=== PATIENT | male | born 1960 | race Caucasian/White ===

== ENCOUNTER 2017-03-16 09:51 | Outpatient (CLI) | payer SELFPAY ==
[2017-03-16 10:16] LABS: INR-International Normal Ratio 2.3; Prothrombin Time 25.7 SEC (12.0-14.7)
== END 2017-03-16 09:52 | disposition home or self-care (01) ==
LOC: MADLABBHPM 09:51
PROVIDERS: ATTEND Family Medicine
DX: Z51.81 Encounter for therapeutic drug level monitoring (principal); Z79.01 Long term (current) use of anticoagulants
CPT/HCPCS: 36415; 85610

== ENCOUNTER 2017-04-06 07:18 | Outpatient (CLI) | payer SELFPAY ==
[2017-04-06 08:07] LABS: INR-International Normal Ratio 2.3; Prothrombin Time 26.1 SEC (12.0-14.7)
== END 2017-04-06 07:19 | disposition home or self-care (01) ==
LOC: MADLABBHPM 07:18
PROVIDERS: ATTEND Family Medicine
DX: Z51.81 Encounter for therapeutic drug level monitoring (principal); Z79.01 Long term (current) use of anticoagulants
CPT/HCPCS: 36415; 85610

== ENCOUNTER 2018-01-07 07:44 | Outpatient (CLI) | payer SELFPAY ==
[2018-01-07 08:28] LABS: Prothrombin Time 22.5 SEC (12.0-14.7)
== END 2018-01-07 07:45 | disposition home or self-care (01) ==
LOC: MADLAB 07:44
PROVIDERS: ATTEND Family Medicine
DX: Z51.81 Encounter for therapeutic drug level monitoring (principal); Z79.01 Long term (current) use of anticoagulants
CPT/HCPCS: 36415; 85610

== ENCOUNTER 2019-02-25 08:18 | Outpatient (CLI) | payer SELFPAY ==
[2019-02-25 08:39] LABS: INR-International Normal Ratio 1.8; Prothrombin Time 20.6 SEC (12.0-14.7)
== END 2019-02-25 08:19 | disposition home or self-care (01) ==
LOC: MADLAB 08:18
PROVIDERS: ATTEND Family Medicine
DX: Z51.81 Encounter for therapeutic drug level monitoring (principal); Z79.01 Long term (current) use of anticoagulants
CPT/HCPCS: 36415; 85610

== ENCOUNTER 2019-06-30 08:00 | Outpatient (CLI) | payer SELFPAY ==
[2019-06-30 08:53] LABS: INR-International Normal Ratio 2.8; Prothrombin Time 29.6 SEC (12.0-14.7)
== END 2019-06-30 08:01 | disposition home or self-care (01) ==
LOC: MADLAB 08:00
PROVIDERS: ATTEND Family Medicine
DX: Z51.81 Encounter for therapeutic drug level monitoring (principal); Z79.01 Long term (current) use of anticoagulants
CPT/HCPCS: 36415; 85610

== ENCOUNTER 2019-09-21 07:34 | Outpatient (CLI) | payer SELFPAY ==
[2019-09-21 07:53] LABS: INR-International Normal Ratio 2.6; Prothrombin Time 27.6 sec (12.0-14.7)
== END 2019-09-21 07:35 | disposition home or self-care (01) ==
LOC: MADLAB 07:34
PROVIDERS: ATTEND Family Medicine
DX: Z51.81 Encounter for therapeutic drug level monitoring (principal); Z79.01 Long term (current) use of anticoagulants
CPT/HCPCS: 36415; 85610

== ENCOUNTER 2019-12-01 07:15 | Outpatient (CLI) | payer OTHER, SELFPAY ==
[2019-12-01 07:45] LABS: INR-International Normal Ratio 3.2; Prothrombin Time 32.4 sec (12.0-14.7)
== END 2019-12-01 07:16 | disposition home or self-care (01) ==
LOC: MADLAB 07:15
PROVIDERS: ATTEND Family Medicine
DX: Z51.81 Encounter for therapeutic drug level monitoring (principal); Z79.01 Long term (current) use of anticoagulants
CPT/HCPCS: 36415; 85610

== ENCOUNTER 2020-01-12 07:04 | Outpatient (CLI) | payer SELFPAY ==
[2020-01-12 07:35] LABS: INR-International Normal Ratio 2.5; Prothrombin Time 26.5 sec (12.0-14.7)
== END 2020-01-12 07:05 | disposition home or self-care (01) ==
LOC: MADLAB 07:04
PROVIDERS: ATTEND Family Medicine
DX: Z51.81 Encounter for therapeutic drug level monitoring (principal); Z79.01 Long term (current) use of anticoagulants
CPT/HCPCS: 36415; 85610

== ENCOUNTER 2020-03-13 07:32 | Outpatient (CLI) | payer OTHER ==
[2020-03-13 08:20] LABS: INR-International Normal Ratio 2.8; Prothrombin Time 29.8 sec (12.0-14.7)
== END 2020-03-13 07:33 | disposition home or self-care (01) ==
LOC: MADLAB 07:32
PROVIDERS: ATTEND Family Medicine
DX: Z51.81 Encounter for therapeutic drug level monitoring (principal); Z79.01 Long term (current) use of anticoagulants
CPT/HCPCS: 36415; 85610

== ENCOUNTER 2020-05-31 09:12 | Outpatient (CLI) | payer OTHER ==
[2020-05-31 09:33] LABS: INR-International Normal Ratio 2.7; Prothrombin Time 29.1 sec (12.0-14.7)
== END 2020-05-31 09:13 | disposition home or self-care (01) ==
LOC: MADLAB 09:12
PROVIDERS: ATTEND Family Medicine
DX: Z51.81 Encounter for therapeutic drug level monitoring (principal); Z79.01 Long term (current) use of anticoagulants
CPT/HCPCS: 36415; 85610

== ENCOUNTER 2020-06-29 11:58 | Outpatient (CLI) | payer SELFPAY ==
[2020-06-29 12:21] LABS: INR-International Normal Ratio 3.6; Prothrombin Time 36.4 sec (12.0-14.7)
== END 2020-06-29 11:59 | disposition home or self-care (01) ==
LOC: MADLAB 11:58
PROVIDERS: ATTEND Family Medicine
DX: Z51.81 Encounter for therapeutic drug level monitoring (principal); Z79.01 Long term (current) use of anticoagulants
CPT/HCPCS: 36415; 85610

== ENCOUNTER 2020-07-16 07:19 | Outpatient (CLI) | payer SELFPAY ==
[2020-07-16 08:02] LABS: INR-International Normal Ratio 3.2; Prothrombin Time 33.6 sec (12.0-14.7)
== END 2020-07-16 07:20 | disposition home or self-care (01) ==
LOC: MADLAB 07:19
PROVIDERS: ATTEND Family Medicine
DX: Z51.81 Encounter for therapeutic drug level monitoring (principal); Z79.01 Long term (current) use of anticoagulants
CPT/HCPCS: 36415; 85610

== ENCOUNTER 2020-08-07 09:12 | Outpatient (CLI) | payer OTHER ==
[2020-08-07 09:31] LABS: INR-International Normal Ratio 2.4; Prothrombin Time 26.4 sec (12.0-14.7)
== END 2020-08-07 09:13 | disposition home or self-care (01) ==
LOC: MADLAB 09:12
PROVIDERS: ATTEND Family Medicine
DX: Z51.81 Encounter for therapeutic drug level monitoring (principal); Z79.01 Long term (current) use of anticoagulants
CPT/HCPCS: 36415; 85610

== ENCOUNTER 2020-09-06 06:57 | Outpatient (CLI) | payer SELFPAY ==
[2020-09-06 07:21] LABS: INR-International Normal Ratio 3.2; Prothrombin Time 33.2 sec (12.0-14.7)
== END 2020-09-06 06:58 | disposition home or self-care (01) ==
LOC: MADLAB 06:57
PROVIDERS: ATTEND Family Medicine
DX: Z51.81 Encounter for therapeutic drug level monitoring (principal); Z79.01 Long term (current) use of anticoagulants
CPT/HCPCS: 36415; 85610

== ENCOUNTER 2020-09-13 07:12 | Outpatient (CLI) | payer SELFPAY ==
[2020-09-13 07:35] LABS: Prothrombin Time 31.8 sec (12.0-14.7)
== END 2020-09-13 07:13 | disposition home or self-care (01) ==
LOC: MADLAB 07:12
PROVIDERS: ATTEND Family Medicine
DX: Z51.81 Encounter for therapeutic drug level monitoring (principal); Z79.01 Long term (current) use of anticoagulants
CPT/HCPCS: 36415; 85610

== ENCOUNTER 2020-10-31 14:17 | Outpatient (CLI) | payer SELFPAY ==
[2020-10-31 14:37] LABS: INR-International Normal Ratio 1.6; Prothrombin Time 19.1 sec (12.0-14.7)
== END 2020-10-31 14:18 | disposition home or self-care (01) ==
LOC: MADLAB 14:17
PROVIDERS: ATTEND Family Medicine
DX: Z51.81 Encounter for therapeutic drug level monitoring (principal); Z79.01 Long term (current) use of anticoagulants
CPT/HCPCS: 36415; 85610

== ENCOUNTER 2020-11-21 07:34 | Outpatient (CLI) | payer SELFPAY ==
[2020-11-21 08:21] LABS: INR-International Normal Ratio 1.9; Prothrombin Time 22.1 sec (12.0-14.7)
== END 2020-11-21 07:35 | disposition home or self-care (01) ==
LOC: MADLAB 07:34
PROVIDERS: ATTEND Family Medicine
DX: Z51.81 Encounter for therapeutic drug level monitoring (principal); Z79.01 Long term (current) use of anticoagulants
CPT/HCPCS: 36415; 85610

== ENCOUNTER 2021-01-22 07:55 | Outpatient (CLI) | payer SELFPAY ==
[2021-01-22 08:35] LABS: INR-International Normal Ratio 1.6; Prothrombin Time 19.7 sec (12.0-14.7)
== END 2021-01-22 07:56 | disposition home or self-care (01) ==
LOC: MADLAB 07:55
PROVIDERS: ATTEND Family Medicine
DX: Z51.81 Encounter for therapeutic drug level monitoring (principal); E78.2 Mixed hyperlipidemia; E11.9 Type 2 diabetes mellitus without complications; Z79.01 Long term (current) use of anticoagulants
CPT/HCPCS: 36415; 85610

== ENCOUNTER 2021-02-01 07:26 | Outpatient (CLI) | payer SELFPAY ==
[2021-02-01 07:54] LABS: INR-International Normal Ratio 2.1
== END 2021-02-01 07:27 | disposition home or self-care (01) ==
LOC: MADLAB 07:26
PROVIDERS: ATTEND Family Medicine
DX: Z51.81 Encounter for therapeutic drug level monitoring (principal); Z79.01 Long term (current) use of anticoagulants
CPT/HCPCS: 36415; 85610

== ENCOUNTER 2021-03-05 07:46 | Outpatient (CLI) | payer SELFPAY ==
[2021-03-05 08:31] LABS: INR-International Normal Ratio 2.6; Prothrombin Time 28.1 sec (12.0-14.7)
== END 2021-03-05 07:47 | disposition home or self-care (01) ==
LOC: MADLAB 07:46
PROVIDERS: ATTEND Family Medicine
DX: Z51.81 Encounter for therapeutic drug level monitoring (principal); Z79.01 Long term (current) use of anticoagulants
CPT/HCPCS: 36415; 85610

== ENCOUNTER 2021-04-05 07:45 | Outpatient (CLI) | payer SELFPAY ==
[2021-04-05 08:18] LABS: INR-International Normal Ratio 2.8; Prothrombin Time 29.7 sec (12.0-14.7)
== END 2021-04-05 07:46 | disposition home or self-care (01) ==
LOC: MADLAB 07:45
PROVIDERS: ATTEND Family Medicine
DX: Z51.81 Encounter for therapeutic drug level monitoring (principal); Z79.01 Long term (current) use of anticoagulants
CPT/HCPCS: 36415; 85610

== ENCOUNTER 2021-04-30 07:05 | Outpatient (CLI) | payer SELFPAY ==
[2021-04-30 07:31] LABS: Prothrombin Time 31.7 sec (12.0-14.7)
== END 2021-04-30 07:06 | disposition home or self-care (01) ==
LOC: MADLAB 07:05
PROVIDERS: ATTEND Family Medicine
DX: Z51.81 Encounter for therapeutic drug level monitoring (principal); Z79.01 Long term (current) use of anticoagulants
CPT/HCPCS: 36415; 85610

== ENCOUNTER 2021-05-09 11:19 | Outpatient (CLI) | payer SELFPAY ==
[2021-05-09 12:00] LABS: Prothrombin Time 23.2 sec (12.0-14.7)
== END 2021-05-09 11:20 | disposition home or self-care (01) ==
LOC: MADLAB 11:19
PROVIDERS: ATTEND Family Medicine
DX: Z51.81 Encounter for therapeutic drug level monitoring (principal); Z79.01 Long term (current) use of anticoagulants
CPT/HCPCS: 36415; 85610

== ENCOUNTER 2021-06-17 07:38 | Outpatient (CLI) | payer SELFPAY ==
[2021-06-17 08:16] LABS: INR-International Normal Ratio 1.8
== END 2021-06-17 07:39 | disposition home or self-care (01) ==
LOC: MADLAB 07:38
PROVIDERS: ATTEND Family Medicine
DX: Z51.81 Encounter for therapeutic drug level monitoring (principal); Z79.01 Long term (current) use of anticoagulants
CPT/HCPCS: 36415; 85610

== ENCOUNTER 2021-08-01 10:16 | Outpatient (CLI) | payer OTHER ==
[2021-08-01 10:42] LABS: INR-International Normal Ratio 2.4; Prothrombin Time 26.5 sec (12.0-14.7)
== END 2021-08-01 10:17 | disposition home or self-care (01) ==
LOC: MADLAB 10:16
PROVIDERS: ATTEND Family Medicine
DX: Z51.81 Encounter for therapeutic drug level monitoring (principal); Z79.01 Long term (current) use of anticoagulants
CPT/HCPCS: 36415; 85610

== ENCOUNTER 2021-09-03 06:53 | Outpatient (CLI) | payer SELFPAY ==
[2021-09-03 07:42] LABS: INR-International Normal Ratio 2.6; Prothrombin Time 28.3 sec (12.0-14.7)
== END 2021-09-03 06:54 | disposition home or self-care (01) ==
LOC: MADLAB 06:53
PROVIDERS: ATTEND Family Medicine
DX: Z51.81 Encounter for therapeutic drug level monitoring (principal); Z79.01 Long term (current) use of anticoagulants
CPT/HCPCS: 36415; 85610

== ENCOUNTER 2021-10-07 06:52 | Outpatient (CLI) | payer SELFPAY ==
[2021-10-07 07:32] LABS: INR-International Normal Ratio 2.7; Prothrombin Time 29.6 sec (12.0-14.7)
== END 2021-10-07 06:53 | disposition home or self-care (01) ==
LOC: MADLAB 06:52
PROVIDERS: ATTEND Family Medicine
DX: Z51.81 Encounter for therapeutic drug level monitoring (principal); Z79.01 Long term (current) use of anticoagulants
CPT/HCPCS: 36415; 85610

== ENCOUNTER 2021-11-07 10:04 | Outpatient (CLI) | payer OTHER ==
[2021-11-07 10:22] LABS: Prothrombin Time 41.2 sec (12.0-14.7)
[2021-11-07 10:24] LABS: INR-International Normal Ratio 4.2
== END 2021-11-07 10:05 | disposition home or self-care (01) ==
LOC: MADLAB 10:04
PROVIDERS: ATTEND Family Medicine
DX: Z51.81 Encounter for therapeutic drug level monitoring (principal); Z79.01 Long term (current) use of anticoagulants
CPT/HCPCS: 36415; 85610

== ENCOUNTER 2021-11-08 09:50 | Outpatient (CLI) | payer OTHER ==
[2021-11-08 10:22] LABS: Prothrombin Time 40.2 sec (12.0-14.7)
== END 2021-11-08 09:51 | disposition home or self-care (01) ==
LOC: MADLAB 09:50
PROVIDERS: ATTEND Family Medicine
DX: Z51.81 Encounter for therapeutic drug level monitoring (principal); Z79.01 Long term (current) use of anticoagulants
CPT/HCPCS: 36415; 85610

== ENCOUNTER 2021-11-11 06:55 | Outpatient (CLI) | payer SELFPAY ==
[2021-11-11 08:42] LABS: INR-International Normal Ratio 1.3; Prothrombin Time 16.3 sec (12.0-14.7)
== END 2021-11-11 06:56 | disposition home or self-care (01) ==
LOC: MADLAB 06:55
PROVIDERS: ATTEND Family Medicine
DX: Z51.81 Encounter for therapeutic drug level monitoring (principal); Z79.01 Long term (current) use of anticoagulants
CPT/HCPCS: 36415; 85610

== ENCOUNTER 2021-11-26 06:58 | Outpatient (CLI) | payer SELFPAY ==
[2021-11-26 08:21] LABS: INR-International Normal Ratio 2.8; Prothrombin Time 30.1 sec (12.0-14.7)
== END 2021-11-26 06:59 | disposition home or self-care (01) ==
LOC: MADLAB 06:58
PROVIDERS: ATTEND Family Medicine
DX: Z51.81 Encounter for therapeutic drug level monitoring (principal); Z79.01 Long term (current) use of anticoagulants
CPT/HCPCS: 36415; 85610

== ENCOUNTER 2021-12-31 09:50 | Outpatient (CLI) | payer OTHER ==
[2021-12-31 10:42] LABS: INR-International Normal Ratio 3.7; Prothrombin Time 37.5 sec (12.0-14.7)
== END 2021-12-31 09:51 | disposition home or self-care (01) ==
LOC: MADLAB 09:50
PROVIDERS: ATTEND Family Medicine
DX: Z51.81 Encounter for therapeutic drug level monitoring (principal); Z79.01 Long term (current) use of anticoagulants
CPT/HCPCS: 36415; 85610

== ENCOUNTER 2022-01-29 08:00 | Outpatient (CLI) | payer OTHER ==
[2022-01-29 08:17] LABS: INR-International Normal Ratio 2.3; Prothrombin Time 26.1 sec (12.0-14.7)
== END 2022-01-29 08:01 | disposition home or self-care (01) ==
LOC: MADLAB 08:00
PROVIDERS: ATTEND Family Medicine
DX: Z51.81 Encounter for therapeutic drug level monitoring (principal); Z79.01 Long term (current) use of anticoagulants
CPT/HCPCS: 36415; 85610

== ENCOUNTER 2022-11-26 11:09 | Outpatient (CLI) | payer OTHER | END 2022-11-26 11:10 | disposition home or self-care (01) | LOC: MADRAD 11:09 | PROVIDERS: ATTEND Family Medicine | DX: M54.50 Low back pain, unspecified (principal); M47.816 Spondylosis without myelopathy or radiculopathy, lumbar region; M85.88 Other specified disorders of bone density and structure, other site | CPT/HCPCS: 72100 ==

== ENCOUNTER 2023-04-04 07:19 | Emergency (ER) | payer OTHER ==
[2023-04-04 08:13] LABS: #Basophils 0.1 thou/uL (0.0-0.2); #Lymphocytes 0.2 thou/uL (1.20-3.40); #Monocytes 0.4 thou/uL (0.11-0.59); #Neutrophils 6.5 thou/uL (1.40-6.50); %Basophils 2.1 % (0.0-1.0); %Eosinophils 0.2 % (0.0-10.0); %Lymphocytes 2.6 % (21.0-51.0); %Monocytes 4.8 % (0.0-10.0); %Neutrophils 90.3 % (42.0-75.0); Hematocrit 37.4 % (42.0-52.0); Hemoglobin 12.6 g/dL (14.0-18.0); Mean Corpuscular HGB CONC 33.8 g/dL (32.0-36.0); Mean Corpuscular Hemoglobin 30.9 pg (27.0-31.0); Mean Corpuscular Volume 91.6 fl (78.0-98.0); Mean Platelet Volume 7.7 fL (7.4-10.4); Platelet Adequacy Comment Appears Decreased; Platelet Count 111 10x3/uL (130-400); RBC Distribution Width 15.9 % (11.5-14.5); Red Blood Cell (RBC) Count 4.09 mill/uL (4.70-6.10); White Blood Cell (WBC) Count 7.2 10x3/uL (4.8-10.8)
[2023-04-04 08:18] LABS: Anion Gap 16 mmol/L (10-20); BUN (Urea Nitrogen) 12 mg/dL (8.4-25.7); Calc. Creatinine Clearance 0 mL/min (70-130); Calcium 8.7 mg/dL (7.8-10.44); Carbon Dioxide 22 mmol/L (23-31); Chloride 95 mmol/L (98-107); Estimated GFR 100; Glucose 90 mg/dL (80-115); Sodium 129 mmol/L (136-145)
[2023-04-04] MEDS ORDERED: Sodium Chloride 0.9% 500 ML ONE (08:33)
[2023-04-04] MEDS ORDERED: Metoprolol Tartrate 5 MG/5 ML VIAL ONE (08:51)
[2023-04-04] MEDS ORDERED: Cefepime 2 GM VIAL ONE (09:37)
[2023-04-04] MEDS ORDERED: Sodium Chloride 0.9% 1,000 ML ONE (09:37)
[2023-04-04] MEDS ORDERED: Sodium Chloride 0.9% 100 ML ONE (09:37)
[2023-04-04] MEDS ORDERED: Ipratropium/Albuterol 3 ML NEB ONE (11:05)
[2023-04-04 11:06] LABS: Lactic Acid 2.9 mmol/L (0.5-2.2)
== END 2023-04-04 14:09 | disposition short-term general hospital (02) ==
LOC: MADERS 07:19
DX: J18.9 Pneumonia, unspecified organism (principal); E78.00 Pure hypercholesterolemia, unspecified; E11.9 Type 2 diabetes mellitus without complications; I10 Essential (primary) hypertension; I48.91 Unspecified atrial fibrillation; Z87.891 Personal history of nicotine dependence; Z79.01 Long term (current) use of anticoagulants; Z79.899 Other long term (current) drug therapy
CPT/HCPCS: 36415; 71045; 80048; 83605; 83880; 85025; 87040; 93005; 96361; 96365; 96375; J0692; J3490; J7030; J7050; J7620

== ENCOUNTER 2023-04-28 10:55 | Emergency (ER) | payer OTHER ==
[~2023-04-28 10:55] MED LIST: Iopamidol 370 76% 100 ML VIAL ONE
[2023-04-28] MEDS ORDERED: Ipratropium/Albuterol 3 ML NEB ONE (11:03)
[2023-04-28] MEDS ORDERED: Magnesium 2 GM/50 ML BAG (IN WATER) ONE (11:06)
[2023-04-28 11:45] LABS: #Basophils 0.1 thou/uL (0.0-0.2); #Lymphocytes 0.4 thou/uL (1.20-3.40); #Monocytes 0.4 thou/uL (0.11-0.59); #Neutrophils 7.5 thou/uL (1.40-6.50); %Basophils 1.7 % (0.0-1.0); %Eosinophils 0.1 % (0.0-10.0); %Lymphocytes 4.3 % (21.0-51.0); Hematocrit 38.1 % (42.0-52.0); Hemoglobin 12.3 g/dL (14.0-18.0); Mean Corpuscular HGB CONC 32.3 g/dL (32.0-36.0); Mean Corpuscular Hemoglobin 31.3 pg (27.0-31.0); Mean Platelet Volume 7.5 fL (7.4-10.4); Platelet Count 89 10x3/uL (130-400); RBC Distribution Width 17.4 % (11.5-14.5); Red Blood Cell (RBC) Count 3.93 mill/uL (4.70-6.10); White Blood Cell (WBC) Count 8.4 10x3/uL (4.8-10.8)
[2023-04-28] MEDS ORDERED: Cefepime 2 GM VIAL ONE (11:50)
[2023-04-28] MEDS ORDERED: Sodium Chloride 0.9% 100 ML ONE (11:51)
[2023-04-28 11:54] LABS: ALT (SGPT) 35 U/L (8-55); AST (SGOT) 13 U/L (5-34); Albumin 3.3 g/dL (3.4-4.8); Alkaline Phosphatase 95 U/L (40-110); Anion Gap 19 mmol/L (10-20); BUN (Urea Nitrogen) 17 mg/dL (8.4-25.7); Bilirubin, Total 0.9 mg/dL (0.2-1.2); Calc. Creatinine Clearance 0 mL/min (70-130); Calcium 8.7 mg/dL (7.8-10.44); Carbon Dioxide 24 mmol/L (23-31); Chloride 95 mmol/L (98-107); Estimated GFR 101; Globulin 2.4 g/dL (2.4-3.5); Glucose 215 mg/dL (80-115); Potassium 4.1 mmol/L (3.5-5.1); Protein, Total 5.7 g/dL (5.8-8.1); Sodium 134 mmol/L (136-145)
[2023-04-28 11:58] LABS: Base Excess-Venous -0.1 mmol/L (-2.0 to 3.0); Bicarbonate (HCO3v) 26.4 mmol/L (22.0-28.0); CO2 Tension (PvCO2) 49.6 mmHg (42.0-51.0); Calcium, Ionized 1.16 mmol/L (1.15-1.33); Chloride 94 mmol/L (98-107); Hemoglobin - Calc 12.8 g/dL (14.0-18.0); Sodium 134 mmol/L (138-145); vO2 Saturation-calc 70.8 % (60.0-85.0)
[2023-04-28] MEDS ORDERED: Vancomycin 1 GM VIAL ONE (12:08)
[2023-04-28] MEDS ORDERED: Sodium Chloride 0.9% 250 ML 250 ML ONE (12:09)
[2023-04-28] MEDS ORDERED: Aspirin 325 MG TAB ONE (12:09)
[2023-04-28 12:39] LABS: SARS-CoV-2 NAA Rapid Test Not Detected (NotDetected)
== END 2023-04-28 12:38 | disposition short-term general hospital (02) ==
LOC: MADERS 10:55
DX: J18.9 Pneumonia, unspecified organism (principal); J96.00 Acute respiratory failure, unspecified whether with hypoxia or hypercapnia; R06.03 Acute respiratory distress; I48.91 Unspecified atrial fibrillation; I10 Essential (primary) hypertension; E78.00 Pure hypercholesterolemia, unspecified; E11.9 Type 2 diabetes mellitus without complications; Z87.891 Personal history of nicotine dependence; Z79.01 Long term (current) use of anticoagulants; Z79.899 Other long term (current) drug therapy; Z79.84 Long term (current) use of oral hypoglycemic drugs
CPT/HCPCS: 71045; 71275; 74174; 80053; 82330; 82803; 83605; 83735; 83880; 84484; 85025; 87040; 93005; 94660; 96365; 96368; 96375; J0692; J3370; J3475; J3490; J7050; J7620; Q9967